=== PATIENT | female | born 1975 | race Caucasian/White ===

== ENCOUNTER 2024-03-19 19:03 | Emergency (ER) | payer MEDICAID, SELFPAY ==
[2024-03-19 19:15] VITALS: BP 135/86; PULSE 61; RESP 18; TEMP 36.3; O2SAT 94; BMI 44.9
--- NOTE | 2024-03-19 19:31 | ED.GENADULT ---
HPI - General Adult General Chief complaint: Lower Extremity Swelling Stated complaint: Legs/feet swollen, scratched by cat Time Seen by Provider: 03/19/24 19:06 History of Present Illness HPI narrative: This 48-year-old female comes in because of bilateral lower extremity swelling with some erythema. She also has a cat at home that uses her legs to crawl up on the couch. She has multiple abrasions to both lower extremities as results of this. The patient is on Coumadin for managing a mechanical heart valve. She does not report any fevers. Related Data Previous Rx's ?Medication ?Instructions ?Recorded furosemide 20 mg tablet (Lasix) 20 mg PO DAILY #20 tabs 03/19/24 Allergies Allergy/AdvReac Type Severity Reaction Status Date / Time adhesive tape AdvReac Severe rash Verified 03/19/24 19:24 Penicillins AdvReac Severe Anaphylaxis Verified 03/19/24 19:24 tomato AdvReac Severe Uncoded 03/19/24 19:24 Review of Systems Status of ROS: Reports: 10 or more systems reviewed and unremarkable except as noted in History and below Narrative: Constitutional: No fevers, no weight gain or loss. Eyes: No discharge. No vision changes. HENT: No congestion, no sore throat, no ear pain. Cardiovascular: No chest pain, no palpitations. Respiratory: No shortness of breath, no wheezes, no cough. Gastrointestinal: No abdominal pain, no vomiting, no diarrhea. Genitourinary: No dysuria, no hematuria. Musculoskeletal: Normal range of motion. Skin: No rashes, no pruritis. Multiple cat scratch wounds on both lower extremities. Bilateral pedal edema. Neurological: No dizziness, weakness, sensory change, speech change. Endo/Heme/Allergies: No bruising or bleeding. No polydipsia. Pysch: no suicidality, no anxiety, no insomnia. All other systems reviewed and are negative. Exam Narrative: Exam Narrative: Constitutional: Well-developed, well-nourished, no acute distress. HEENT: Normocephalic, atraumatic. Neck: Normal range of motion. Nontender. Supple. Heart: Regular. No murmurs. Normal rate. Intact distal pulses. Lungs: Clear to auscultation. No chest discomfort. No wheezes, rhonchi, or rales. Abdomen: Normal bowel sounds. Nontender. No rebound tenderness. Genitalia: Deferred. Back: No midline tenderness. Normal range of motion. Extremities: Normal range of motion. Multiple superficial scratches on both lower extremities from the knee down to the ankles. None of them appear to be infected. There is bilateral large pedal edema with some petechiae in her feet. Skin: Intact. No rash. Warm. No erythema or pallor. Neurologic: No altered sensation. No weakness. Alert and oriented. Psychiatric: No suicidality. No anxiety or depression. No insomnia. Nursing notes and vitals signs are reviewed. Const: Vital Signs, click to edit/add: Vital Signs - 24 hr 03/19/24 19:15 Temperature 97.4 F L Pulse Rate [Right Pulse Oximeter] 61 Respiratory Rate 18 Blood Pressure [Ri ght Upper Arm] 135/86 Pulse Oximetry 94 Oxygen Delivery Me thod Room Air Course Vital Signs Vital signs: Initial Vital Signs Temperature 97.4 F L 03/19/24 19:15 Temperature Source Temporal Artery Scan 03/19/24 19:15 Pulse Rate 61 03/19/24 19:15 Pulse Rhythm Regular 03/19/24 19:15 Respiratory Rate 18 03/19/24 19:15 Blood Pressure 135/86 03/19/24 19:15 Blood Pressure Mean 102 03/19/24 19:15 Blood Pressure Position Sitting 03/19/24 19:15 Pulse Oximetry 94 03/19/24 19:15 Oxygen Delivery Method Room Air 03/19/24 19:15 Vital Signs Temperature 97.4 F L 03/19/24 19:15 Pulse Rate 61 03/19/24 19:15 Respiratory Rate 18 03/19/24 19:15 Blood Pressure 135/86 03/19/24 19:15 Pulse Oximetry 94 03/19/24 19:15 Oxygen Delivery Method Room Air 03/19/24 19:15 Temperature 97.4 F L 03/19/24 19:15 Pulse Rate 61 03/19/24 19:15 Respiratory Rate 18 03/19/24 19:15 Blood Pressure 135/86 03/19/24 19:15 Pulse Oximetry 94 03/19/24 19:15 Oxygen Delivery Method Room Air 03/19/24 19:15 Medical Decision Making MDM Narrative Medical decision making narrative: This patient comes in because of bilateral pedal edema and because of scratches on her lower legs from her cat. These superficial wounds do not appear to be infected but there is some risk for this as she has rather large edema of both lower extremities. The patient is taking Lasix 20 mg daily but is not getting adequate diuresis. She states that her primary physician was talking about increasing the dose to 40 mg but this has not yet been done. I did provide a prescription for Lasix 20 mg tablets and instructed her to take 40 mg daily for a week or 2. She may even increased to 60 mg if needed for sufficient diuresis. She also received an [facility] prescription for some tablets of Keflex for few days. Her legs do not appear to show infection at this time but she has increased risk for such. Discharge Plan Discharge Clinical Impression: Pedal edema, Cat scratch of multiple sites Patient Disposition: Home, Self-Care Condition: Unchanged Additional Instructions: Increase Lasix to 40 mg daily for 7-10 days. Follow-up with primary physician for ongoing management. Take Keflex also as prescribed. Prescriptions: New furosemide [Lasix] 20 mg tablet 20 mg PO DAILY Qty: 20 0RF Stand Alone Forms: [employer] Info Instructions
[2024-03-19 20:20] LABS: INR 6.55 (0.91-1.10); Prothrombin Time 62.8 Seconds
== END 2024-03-19 20:06 | disposition home or self-care (01) ==
LOC: ED 19:44
PROVIDERS: Emergency Provider Emergency Medicine Emergency Medical Services; PCP Family Medicine
DX: R60.9 Edema, unspecified (principal); S80.812A Abrasion, left lower leg, initial encounter; S80.811A Abrasion, right lower leg, initial encounter; W55.03XA Scratched by cat, initial encounter
CPT/HCPCS: 36415; 85610; 99283; 99284